=== PATIENT | male | born 1960 | race Caucasian/White ===

== ENCOUNTER 2018-10-18 11:37 | Emergency (ER) | payer MEDICARE, MEDICAID ==
[~2018-10-18] VITALS: Ht 175.3 cm; Wt 62.4 kg
[2018-10-18 11:53] VITALS: BP 135/75
[2018-10-18] MEDS ORDERED: ketorolac tromethamine 15mg/ml inj. IM ONE (13:40)
== END 2018-10-18 13:57 | disposition home or self-care (01) ==
LOC: ER 11:39
DX: M43.6 Torticollis (principal); M54.2 Cervicalgia; M25.512 Pain in left shoulder; R20.2 Paresthesia of skin; R20.0 Anesthesia of skin; Z91.010 Allergy to peanuts; V89.2XXA Person injured in unspecified motor-vehicle accident, traffic, initial encounter; Y93.89 Activity, other specified; Y92.488 Other paved roadways as the place of occurrence of the external cause; Y99.8 Other external cause status
CPT/HCPCS: 72040; 72070; 72100; 96372; 99283; J1885